=== PATIENT | male | born 1950 | race Caucasian/White ===

== ENCOUNTER 2019-10-03 | Emergency (ER) | payer MEDICARE ==
[~2019-10-03] MED LIST: no meds
[2019-10-03] MEDS ORDERED: CEPHALEXIN500 M1 PO (11:33)
== END 2019-10-03 11:57 | disposition home or self-care (01) ==
DX: L03.115 Cellulitis of right lower limb (principal); E11.9 Type 2 diabetes mellitus without complications; I10 Essential (primary) hypertension; M79.604 Pain in right leg; M79.89 Other specified soft tissue disorders

== ENCOUNTER 2021-10-08 16:51 | Emergency (ER) | payer MEDICARE ==
[~2021-10-08] VITALS: Ht 177.8 cm; Wt 112.4 kg
[~2021-10-08 16:51] MED LIST changes: +CEPHALEXIN500 M1 PO
[2021-10-08 17:06] VITALS: BP 119/54
[2021-10-08] MEDS ORDERED: AMOX/K CLAV875 M1 PO (17:14)
[2021-10-08 17:30] VITALS: BP 112/52
== END 2021-10-08 17:38 | disposition home or self-care (01) ==
LOC: ED 16:51
DX: H66.92 Otitis media, unspecified, left ear (principal); I10 Essential (primary) hypertension; E11.9 Type 2 diabetes mellitus without complications